=== PATIENT | female | born 1960 | race African-American/Black ===

== ENCOUNTER 2023-11-25 22:24 | Emergency (ER) | payer MEDICAID ==
[~2023-11-25] VITALS: Ht 170.2 cm; Wt 83.2 kg
[2023-11-25 23:04] VITALS: TEMP 97.7
[2023-11-26 01:31] LABS: HEMATOCRIT. 42.4 % (36.0-48.0); HEMOGLOBIN. 14.1 g/dL (12.0-16.0); MEAN CORPUSCULAR HEMOGLOBIN 30.4 pg (28.0-32.0); MEAN CORPUSCULAR HGB CONC 33.2 g/dL (31.0-37.0); MEAN CORPUSCULAR VOLUME 91.5 fL (81.0-99.0); MEAN PLATELET VOLUME 9.4 fl (7.4-10.4); PLATELET 194 x1000/uL (130-400); RED BLOOD CELL COUNT 4.63 mill/uL (4.2-5.4); RED CELL DISTRIBUTION WIDTH 15.9 % (11.6-14.6); WHITE BLOOD COUNT 10.4 x1000/uL (4.5-11.0)
[2023-11-26 01:35] LABS: DIFFERENTIAL COMMENT 1
[2023-11-26] MEDS: ONDANSETRON 4MG ODT PO ONE (01:38)
[2023-11-26] MEDS: KETOROLAC 15MG/ML VIAL IV ONE ×2 (01:38→03:00)
[2023-11-26] MEDS: SODIUM CHLORIDE 0.9% 1,000 ML IV ONE (01:38)
[2023-11-26 01:49] LABS: ALANINE AMINOTRANSFERASE 17 IU/L (10-49); ALBUMIN 4.7 g/dL (3.2-4.8); ASPARTATE AMINOTRANSFERASE 24 IU/L (<34); BILIRUBIN TOTAL 0.4 mg/dL (0.1-1.0); CALCIUM 9.1 mg/dL (8.7-10.4); CARBON DIOXIDE 24 mEq/L (21-32); CHLORIDE 104 mEq/L (98-107); CREATININE 0.7 mg/dL (0.6-1.0); GLUCOSE 152 mg/dL (70-105); POTASSIUM 3.9 mEq/L (3.5-5.1); PROTEIN TOTAL 7.7 g/dL (6.0-8.3); SODIUM 135 mEq/L (136-145); UREA NITROGEN BLOOD 13 mg/dL (9-23)
[2023-11-26 02:13] LABS: PROTHROMBIN TIME 11.1 sec (9.6-11.0)
[2023-11-26 02:20] LABS: PLATELET ESTIMATE NORMAL
[2023-11-26 03:00] VITALS: BP 179/79; PULSE 70; RESP 14
[2023-11-26] MEDS ORDERED: IBUP-2028 MT (03:15)
[2023-11-26] MEDS ORDERED: METH-653 MT (03:15)
[2023-11-26 03:19] LABS: CLARITY URINE CLEAR (CLEAR); COLOR URINE YELLOW (YELLOW); GLUCOSE URINE TRACE (NEGATIVE); KETONES URINE TRACE (NEGATIVE); LEUKOCYTE ESTERASE URINE NEGATIVE (NEGATIVE); NITRITE URINE NEGATIVE (NEGATIVE); OCCULT BLOOD URINE NEGATIVE (NEGATIVE); PROTEIN URINE NEGATIVE (NEGATIVE); SPECIFIC GRAVITY URINE 1.015 (1.005-1.030); UROBILINOGEN URINE 0.2 E.U./dL (0.2-1.0)
[2023-11-26] MEDS: METHOCARBAMOL 750MG TABLET PO SCH (03:35)
[2023-11-26 03:49] LABS: WBC URINE NONE SEEN /hpf (0-2)
[2023-11-26 03:50] LABS: AMORPHOUS SEDIMENT URINE 1+ /lpf; BACTERIA URINE NONE SEEN; RBC URINE NONE SEEN /hpf (0-2); SQUAMOUS EPITHELIAL CELL URINE NONE SEEN /lpf (RARE/1+)
== END 2023-11-26 05:08 | disposition home or self-care (01) ==
LOC: ER 22:24
DX: M54.50 Low back pain, unspecified (principal); E11.9 Type 2 diabetes mellitus without complications; I10 Essential (primary) hypertension
CPT/HCPCS: 99285; 74176; 96374; 96361; 80053; 81003; 83690; 85025; 85610; 36415; 96376; Q0162; J1885; J7030